=== PATIENT | male | born 1985 | race Caucasian/White ===

== ENCOUNTER 2021-04-13 17:35 | Emergency (ER) | payer MEDICARE, MEDICAID ==
[2021-04-13] MEDS ORDERED: Haloperidol Lactate 5 MG/ML SDV IM ONE (18:17)
[2021-04-13] MEDS ORDERED: diphenhydrAMINE 50 MG/ML SDV IM ONE (18:17)
[2021-04-13] MEDS ORDERED: LORazepam 2 MG/ML SDV IM ONE (18:19)
--- NOTE | 2021-04-13 18:21 | EDM.PDOCBH ---
ED HPI GENERAL MEDICAL PROBLEM - General Stated Complaint: PSYCH Time Seen by Provider: 04/13/21 18:00 Source of Information: Reports: Patient, Family (Patient's guardian) History Limitations: Reports: Altered Mental Status - History of Present Illness INITIAL COMMENTS - FREE TEXT/NARRATIVE: 35-year-old male who presents to the emergency department via his guardian who is his ex- secondary to auditory hallucinations, verbally aggressive behavior and threats at physical harm for the past 2 days. This has been progressively worsening over time. Today, he has been very agitated and talking "out of his head". No known recent drug use. He does have a past history of methamphetamine use but that is been is in the past according to the patient's ex- who is his guardian. The patient cannot any history. He does know that he has at the hospital but he is disoriented to time and situation. He appears to be poised for action even sitting on the stretcher. And he will spontaneously get up and walk around the room and looked and talked at people are things that are not there. There is been no vomiting. He apparently has been drinking liquids well. No reported fever. This is really all the history that I can obtain and it is really all the history that the guardian can provide me. The patient did take his morning medicines (since the guardian gave them to him and watched him take the medications). According to the guardian, the patient has not left her house for the past week and she could not see any way that he could have taken drugs or been exposed to illicit drugs. The guardian reports that he has never had auditory hallucinations or had agitation or aggression like this in the past. He has minimal over the past few years, had some impairments which has led to her being able to assume guardianship of him and apparently he is supposed to be going to a fpc within the next month. There are no other associated signs or symptoms. There are no other modifying factors. Onset: Other (Last 2-3 days) Duration: Getting Worse Location: Reports: Other (No known pain) Context: Reports: Other (As above.) Treatments MANAGER COMPANY: Reports: Other (see below) (Nothing.) - Related Data Allergies Allergy/AdvReac Type Severity Reaction Status Date / Time No Known Allergies Allergy Verified 04/13/21 19:08 Home Meds: Home Meds Amitriptyline HCl 150 mg PO BEDTIME 04/13/21 [History] Amphetamine/Dextroamphetamine [Adderall XR] 30 mg PO DAILY 04/13/21 [History] Dextroamphetamine/Amphetamine [Adderall] 30 mg PO 1200 04/13/21 [History] Divalproex Sodium [Divalproex Sodium ER] 500 mg PO BEDTIME 04/13/21 [History] FLUoxetine HCl [Fluoxetine HCl] 40 mg PO DAILY 04/13/21 [History] Pimozide 1 mg PO BID 04/13/21 [History] Propranolol [Inderal] 20 mg PO BID 04/13/21 [History] QUEtiapine [SEROquel] 25 mg PO TID 04/13/21 [History] haloperidoL [Haldol] 5 mg PO Q6H PRN #10 tab 04/15/21 [Rx] Past Medical History Other HEENT History: TEETH PROBLEMS Psychiatric History: Reports: ADHD, Anxiety, Bipolar, Depression, PTSD, Other (See Below) ( alcohol syndrome) - Past Surgical History HEENT Surgical History: Reports: Oral Surgery (Multiple dental extractions) Social & Family History - Tobacco Use Tobacco Use Status *Q: Former Tobacco User (Nonsmoker for the past 4 years.) - Alcohol Use Alcohol Use History: No - Recreational Drug Use Recreational Drug Use: Yes Recreational Drug Use Comment: 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 ED ROS GENERAL - Review of Systems Review Of Systems: Unable To Obtain Reason Not Obtained: The patient is acutely psychotic and cannot give me this info ED EXAM, BEHAVIORAL HEALTH - Physical Exam Exam: See Below General Appearance: Alert, Other (Patient is agitated and hyperactive.) Eye Exam: Bilateral Eye: EOMI, Normal Inspection, PERRL Ears: Hearing Grossly Normal Nose: Normal Inspection, Normal Mucosa, No Blood Throat/Mouth: Normal Inspection, No Airway Compromise, Other (Somewhat slurred speech. Moist mucous membranes) Head: Atraumatic, Normocephalic Neck: Normal Inspection, Supple, Non-Tender, Full Range of Motion Respiratory/Chest: No Respiratory Distress, Lungs Clear, Normal Breath Sounds, No Accessory Muscle Use, Chest Non-Tender Cardiovascular: Normal Peripheral Pulses, Regular Rate, Rhythm, No Murmur GI/Abdominal: Normal Bowel Sounds, Soft, Non-Tender Back Exam: Normal Inspection, Full Range of Motion Extremities: Normal Inspection, Normal Range of Motion Neurological: Alert, No Motor/Sensory Deficits, Disoriented to Time Psychiatric: Alert, Flat Affect, Agitated, Tangential Thoughts, Auditory Hallucinations, Pressured Speech, Threatening Behavior Skin Exam: Warm, Dry, Intact, Normal color, No rash COURSE, BEHAVIORAL HEALTH COMP - Course Vital Signs: Last Vital Signs Temp 36.5 C 04/15/21 03:00 Pulse 88 04/15/21 03:00 Resp 18 04/15/21 03:00 BP 126/94 H 04/15/21 03:00 Pulse Ox 100 04/15/21 03:00 Orders, Labs, Meds: Active Orders 24 hr Category Date Time Status Initiate/Renew Violent-Self Destructive Restraints >/= Care 04/14/21 18:31 Ordered 18yo Q4H Laboratory Tests 04/13/21 04/13/21 04/13/21 Range/Units 18:40 18:40 18:40 WBC 5.8 (3.2-10.1) x10-3/uL RBC 4.41 (3.90-5.90) x10(6)uL Hgb 13.7 (12.9-17.7) g/dL Hct 41.1 (38.3-50.1) % MCV 93.3 (80.8-98.7) fL MCH 31.1 (27.0-33.3) pg MCHC 33.4 (28.7-35.3) g/dL RDW 12.9 (12.4-15.0) % Plt Count 204 (117-477) x10(3)uL MPV 7.5 (6.7-11.0) fL Neut % (Auto) 58.9 (40.3-71.8) % Lymph % (Auto) 24.5 (15.8-45.3) % [place] % (Auto) 14.6 (5.5-15.2) % Eos % (Auto) 1.8 (0.1-6.8) % Baso % (Auto) 0.2 L (0.3-3.8) % Neut # (Auto) 3.4 (1.7-6.9) x10-3/uL Lymph # (Auto) 1.4 (0.5-4.5) x10-3/uL [place] # (Auto) 0.8 (0.0-1.2) x10-3/uL Eos # (Auto) 0.1 (0.0-0.6) x10-3/uL Baso # (Auto) 0.0 (0.0-0.3) x10-3/uL Sodium 144 (135-145) mmol/L Potassium 3.4 L (3.5-5.3) mmol/L Chloride 104 (100-110) mmol/L Carbon Dioxide 27 (21-32) mmol/L BUN 14 (7-18) mg/dL Creatinine 1.1 (0.70-1.30) mg/dL Est Cr Clr Drug Dosing TNP Estimated GFR (MDRD) > 60 (>60) BUN/Creatinine Ratio 12.7 (9-20) Glucose 73 L (80-116) mg/dL Calcium 8.6 (8.6-10.2) mg/dL Total Bilirubin 0.9 (0.1-1.3) mg/dL AST 59 H (5-25) IU/L ALT 76 H (12-36) U/L Alkaline Phosphatase 84 (56-112) IU/L Total Protein 6.9 (6.0-8.0) g/dL Albumin 3.2 L (3.5-5.2) g/dL Globulin 3.7 g/dL Albumin/Globulin Ratio 0.9 TSH, Ultra Sensitive 1.33 (0.36-3.74) IU/mL Salicylates 0.5 L (<2.8) mg/dL Urine Opiates Screen (NEGATIVE) Ur Buprenorphine Scrn (NEGATIVE) Ur Oxycodone Screen (NEGATIVE) Urine Methadone Screen (NEGATIVE) Ur Propoxyphene Screen (NEGATIVE) Acetaminophen < 2 L (<2) ug/mL Ur Barbiturates Screen (NEGATIVE) Ur Tricyclics Screen (NEGATIVE) Ur Phencyclidine Scrn (NEGATIVE) Ur Amphetamine Screen (NEGATIVE) U Methamphetamines Scrn (NEGATIVE) U Benzodiazepines Scrn (NEGATIVE) U Cocaine Metab Screen (NEGATIVE) U Marijuana (THC) Screen (NEGATIVE) Ethyl Alcohol < 0.03 (<0.03) % SARS-CoV-2 RNA (ASHLEY) (NEGATIVE) 04/13/21 04/13/21 Range/Units 20:35 20:40 WBC (3.2-10.1) x10-3/uL RBC (3.90-5.90) x10(6)uL Hgb (12.9-17.7) g/dL Hct (38.3-50.1) % MCV (80.8-98.7) fL MCH (27.0-33.3) pg MCHC (28.7-35.3) g/dL RDW (12.4-15.0) % Plt Count (117-477) x10(3)uL MPV (6.7-11.0) fL Neut % (Auto) (40.3-71.8) % Lymph % (Auto) (15.8-45.3) % [place] % (Auto) (5.5-15.2) % Eos % (Auto) (0.1-6.8) % Baso % (Auto) (0.3-3.8) % Neut # (Auto) (1.7-6.9) x10-3/uL Lymph # (Auto) (0.5-4.5) x10-3/uL [place] # (Auto) (0.0-1.2) x10-3/uL Eos # (Auto) (0.0-0.6) x10-3/uL Baso # (Auto) (0.0-0.3) x10-3/uL Sodium (135-145) mmol/L Potassium (3.5-5.3) mmol/L Chloride (100-110) mmol/L Carbon Dioxide (21-32) mmol/L BUN (7-18) mg/dL Creatinine (0.70-1.30) mg/dL Est Cr Clr Drug Dosing Estimated GFR (MDRD) (>60) BUN/Creatinine Ratio (9-20) Glucose (80-116) mg/dL Calcium (8.6-10.2) mg/dL Total Bilirubin (0.1-1.3) mg/dL AST (5-25) IU/L ALT (12-36) U/L Alkaline Phosphatase (56-112) IU/L Total Protein (6.0-8.0) g/dL Albumin (3.5-5.2) g/dL Globulin g/dL Albumin/Globulin Ratio TSH, Ultra Sensitive (0.36-3.74) IU/mL Salicylates (<2.8) mg/dL Urine Opiates Screen Negative (NEGATIVE) Ur Buprenorphine Scrn Negative (NEGATIVE) Ur Oxycodone Screen Negative (NEGATIVE) Urine Methadone Screen Negative (NEGATIVE) Ur Propoxyphene Screen Negative (NEGATIVE) Acetaminophen (<2) ug/mL Ur Barbiturates Screen Negative (NEGATIVE) Ur Tricyclics Screen Positive H (NEGATIVE) Ur Phencyclidine Scrn Negative (NEGATIVE) Ur Amphetamine Screen Positive H (NEGATIVE) U Methamphetamines Scrn Negative (NEGATIVE) U Benzodiazepines Scrn Negative (NEGATIVE) U Cocaine Metab Screen Negative (NEGATIVE) U Marijuana (THC) Screen Negative (NEGATIVE) Ethyl Alcohol (<0.03) % SARS-CoV-2 RNA (ASHLEY) Negative (NEGATIVE) Medications Discontinued Medications Generic Name Dose Route Start Last Admin Trade Name Freq PRN Reason Stop Dose Admin Diphenhydramine HCl 50 mg 04/13/21 18:17 04/13/21 20:35 Diphenhydramine 50 Mg/Ml Sdv IM 04/13/21 18:18 50 mg ONETIME ONE Administration Haloperidol Lactate 5 mg 04/13/21 18:17 04/13/21 20:35 Haloperidol Lactate 5 Mg/Ml Sdv IM 04/13/21 18:18 5 mg ONETIME ONE Administration Haloperidol Lactate 5 mg 04/14/21 17:12 04/14/21 18:39 Haloperidol Lactate 5 Mg/Ml Sdv IM 04/14/21 17:13 5 mg ONETIME ONE Administration Lorazepam 2 mg 04/13/21 18:19 04/13/21 20:35 Lorazepam 2 Mg/Ml Sdv IM 04/13/21 18:20 2 mg ONETIME ONE Administration Lorazepam 2 mg 04/14/21 17:12 04/14/21 17:53 Lorazepam 2 Mg/Ml Sdv IM 04/14/21 17:13 2 mg ONETIME ONE Administration Re-Assessment/Re-Exam: 04/13/2021 20:10 hr: All of the patient's labs are reassuring. He has not been able to provide us with a urine. The [facility] crisis response team personnel has evaluated the patient and she felt that the patient would need inpatient psychiatric care this was because of his acute psychosis with impulsive actions and random actions in which she his not her the consequences would definitely place him in danger of harming himself and potentially others. In addition, he voiced to her that he had had suicidal thoughts and had come up with a plan but currently has no suicidal thoughts or plan at this time. Apparently, when I was talking to the PROFESSOR OF LITERATURE personnel, the patient had walked out of the room and the emergency Department staff are searching for the the patient and attempting to bring him back to the emergency department now and the police have been called. When he is brought back, I will give the patient Haldol 5 mg, Ativan 2 mg and Benadryl 50 mg IM. 04/13/2021 20:40 hr: The patient is back in the emergency department and being monitored. He is calm and cooperative and easily diverted. Police are here and are assisting us. We'll be getting the medications as above. He has provided us with a urine and I will be sent and I will also order a rapid Covid test. An initial telephone call had been placed to and we are awaiting them to call us back. He has received the above medications. 04/13/2021 21:20 hr: The patient is calm and cooperative. He is lying on the emergency department stretcher and resting. His urine tox screen is back and is only positive for the medications that he is taking. We are continuing her search for acute inpatient psychiatric care. 04/13/2021 23:45 hr: CT scan of the patient's head was performed and it showed no acute abnormality. The patient remains calm and cooperative. He is still is organized in his thought processes and he still having auditory and visual hallucinations and talking to them but he has been no danger or threat to anyone here. 04/14/2021 08:00 hr: Patient has remained calm and cooperative throughout the emergency department stay thus far. He has been resting in his bed. The nursing staff are still actively attempting to find bed placement for the patient. Thus far there has been no bed availability or the patient was not deemed appropriate for the facility secondary to his aggression. It should be noted the patient has been exhibiting no aggressive behavior since yesterday. He continues to have disorganized thought processes but is calm and cooperative. We will continue to try to find placement for the patient while providing a safe and protected environment for him. 04/14/2021 14:00 hr: The patient was sleeping. He awakens easily and he continues to have disorganized thought processes but he continues to be calm and saji ative. I will have the nursing staff give him his medications. We are continuing to try to find acute inpatient placement for this patient while providing him a safe and protected environment. 04/14/2021 15:30 hr: His guardian did call in and I updated her on patient's situation. So far, there are no beds available for this gentleman for acute inpatient psychiatric care. The patient has remained calm and cooperative area and there has been no aggressive outbursts or any violence. We will continue to provide the patient with a protected and safe environment. 04/14/2021 17:08: Patient's level of agitation is escalating somewhat. He has been needing to be redirected multiple times by the nursing staff and he is beginning to have some aggressive tones and is being resistant to redirection. He has been on protocol for the past 24 hours and we will continue this used to be a danger to himself and others as well as having aggressive behaviors and being a disruption to the emergency department and he continues to need this protocol in place. I will order the patient Haldol 5 mg and Ativan 2 mg IM to be given. We will continue to provide the patient is safe and protected environment. 04/14/2021 1935 hr: Patient is more calm at this point. He is sitting in his bed. I will be leaving shift at this point and I have discussed the patient's case with Dr. Elder and he will be overseeing the patient's care tonight. I will be back on shift at 7 AM and if the patient is still here at that point, I would resume care of the patient at that time. 04/15/2021 0910 hr: Patient slept well through the night. His agitation seemed to be curtailed with the Haldol. The patient has remained vitally stable. There are no inpatient psychiatric facilities that will except this patient. The patient is to be going to a fpc possibly on Friday or sometime this coming week. His behaviors appear to be controlled and the patient's guardian feels that she can provide a safe and protected environment for him until fpc placement. Therefore, the patient will be discharged to the care of the guardian. I will add Haldol on an as-needed basis for any agitation. Departure - Departure Time of Disposition: 09:30 Disposition: Home, Self-Care 01 Condition: Fair Clinical Impression: Auditory hallucinations Schizoaffective disorder Qualifiers: Schizoaffective disorder type: unspecified Qualified Code(s): F25.9 - Schizoaffective disorder, unspecified Psychosis Qualifiers: Psychosis type: unspecified psychosis type Qualified Code(s): F29 - Unspecified psychosis not due to a substance or known physiological condition - Discharge Information Prescriptions: haloperidoL [Haldol] 5 mg PO Q6H PRN #10 tab PRN Reason: Agitation Referrals: Ashley Simms NP [Primary Care Provider] - Forms: ED Department Discharge Additional Instructions: As we have discussed, there were no psychiatric facilities that would accept [place]. His behaviors appear to be controlled. I have given a prescription for Haldol milligrams that you can use on an NEEDED basis for any agitation. Continue with your efforts to find fpc placement for this patient. He really needs to follow up with the prescribing doctor of all of his medications so that he can have his medications reviewed in adjusted by that doctor. Make sure that he drinks plenty of fluids. Back to an emergency department for v omiting, actions that you feel represent a danger to himself or others, inability to provide a safe and protected and apparent for him or any other concerning signs or symptoms. Sepsis Event Note (ED) - Focused Exam Vital Signs: Vital Signs Temp Pulse Resp BP Pulse Ox 04/15/21 03:00 36.5 C 88 18 126/94 H 100 - My Orders Last 24 Hours: My Active Orders 04/14/21 18:31 Initiate/Renew Violent-Self Destructive Restraints >/=18yo Q4H - Assessment/Plan Last 24 Hours: My Active Orders 04/14/21 18:31 Initiate/Renew Violent-Self Destructive Restraints >/=18yo Q4H
[2021-04-13 19:34] LABS: ACETAMINOPHEN < 2 ug/mL (<2)
[2021-04-14] MEDS ORDERED: LORazepam 2 MG/ML SDV IM ONE (17:12)
[2021-04-14] MEDS ORDERED: Haloperidol Lactate 5 MG/ML SDV IM ONE (17:12)
[2021-04-15 04:12] VITALS: BP 126/94; PULSE 88
== END 2021-04-15 09:35 | disposition home or self-care (01) ==
LOC: FB.ED 17:35
DX: F25.9 Schizoaffective disorder, unspecified (principal); Z87.891 Personal history of nicotine dependence; Z20.822 Contact with and (suspected) exposure to COVID-19; Z79.899 Other long term (current) drug therapy
CPT/HCPCS: 36415; 70450; 80053; 80143; 80179; 80307; 84443; 85025; 96372; 99285; J1200; J1630; J2060; U0002

== ENCOUNTER 2024-10-01 16:27 | Emergency (ER) | payer MEDICARE, MEDICAID ==
[2024-10-01] MEDS: Ketorolac 30 MG/ML SDV IM STA (17:03)
[2024-10-01] MEDS: Cyclobenzaprine 10 MG Tab PO ONE (17:09)
[2024-10-01] MEDS: Ketorolac 30 MG/ML SDV ONE (17:11)
[2024-10-01 17:54] VITALS: BP 123/81; PULSE 125
== END 2024-10-01 17:44 | disposition home or self-care (01) ==
LOC: FB.ED 16:27
DX: S16.1XXA Strain of muscle, fascia and tendon at neck level, initial encounter (principal); Z79.899 Other long term (current) drug therapy; X50.1XXA Overexertion from prolonged static or awkward postures, initial encounter; Y93.89 Activity, other specified
CPT/HCPCS: 96372; 99283; A9270; J1885